=== PATIENT | male | born 1965 | race Caucasian/White ===

== ENCOUNTER 2021-04-11 15:04 | Inpatient (IN) ==
[2021-04-11] MEDS ORDERED: Lactated Ringers 1000 ml BAG 1,000 ML IV ONE (15:23)
[2021-04-11 15:55] LABS: Hematocrit 45 % (42-52); Hemoglobin 15.4 g/dL (14.0-18.0); Mean Corpuscular HGB Conc 34 g/dL (31-36); Mean Corpuscular Hemoglobin 31 pg (27-31); Mean Corpuscular Volume 92 fL (80-94); Red Blood Count 4.94 10^6 /uL (4.18-5.48); Red Cell Distribution Width 16 % (10-15); White Blood Count 5.1 10^3/uL (3.5-10.8)
[2021-04-11 15:57] LABS: Activated Partial Thrombo Time 33.4 seconds (26.0-38.0); INR 1.25 (0.86-1.15)
[2021-04-11 16:05] LABS: ALT 20 U/L (7-52); Albumin 2.5 g/dL (3.2-5.2); Alkaline Phosphatase 365 U/L (35-149); Blood Urea Nitrogen 67 mg/dL (6-24); CO2 Carbon Dioxide 16 mmol/L (22-32); Calcium 8.1 mg/dL (8.6-10.3); Chloride 98 mmol/L (101-111); Creatine Kinase 168 U/L (10-223); Globulin 2.4 g/dL (2-4); Glucose 77 mg/dL (70-100); Sodium 136 mmol/L (135-145); Total Protein 4.9 g/dL (6.4-8.9); eGFR CKD-EPI 15.6 (>60)
[2021-04-11 16:06] LABS: Venous Bicarbonate HCO3 15.5 mmol/L (24-28)
[2021-04-11] MEDS ORDERED: Cefepime 1 GM in Dextrose 1 GM/50 ML BAG IV ONE (16:10)
[2021-04-11] MEDS ORDERED: Vancomycin 1,000 MG in NS 0.9% 250 ml 250 ML IVPB ONE (16:10)
[2021-04-11 16:18] LABS: Alcohol, S < 13 mg/dL (<13)
[2021-04-11 16:22] LABS: Anion Gap 22 mmol/L (2-11)
[2021-04-11] MEDS: Lactated Ringers 1000 ml BAG 1,000 ML IV ONE ×4 (16:29→19:42)
[2021-04-11 17:04] LABS: ABS Eosinophils 0.4 10^3/ul (0-0.6); ABS Lymphocytes 0.5 10^3/ul (1.0-4.8); ABS Neutrophils 4.2 10^3/ul (1.5-7.7); Eosinophil % 8.5 %; Lymphocyte % 9.4 %; Mean Platelet Volume 11.6 fL (7.4-10.4); Platelet Count 12 10^3/uL (150-450)
[2021-04-11 18:46] LABS: Direct Bilirubin 4.7 mg/dL (0.03-0.18); Indirect Bilirubin 1.9 mg/dL (0.3-1.0); Potassium Redraw 2.9 mmol/L (3.5-5.0); Total Bilirubin 6.6 mg/dL (0.2-1.0)
[2021-04-11 19:37] LABS: Lipase < 10 U/L (11.0-82.0)
[2021-04-11] MEDS ORDERED: Lactated Ringers 1000 ml BAG 2,000 ML IV ONE (19:42)
[2021-04-11] MEDS ORDERED: Piperacillin/Tazobac ADVAN 3.375 GM in NS 0.9% 100 ml BAG 100 ML IV ONE (19:54)
[2021-04-11 19:56] LABS: Blood Urea Nitrogen 66 mg/dL (6-24); CO2 Carbon Dioxide 16 mmol/L (22-32); Calcium 7.5 mg/dL (8.6-10.3); Chloride 101 mmol/L (101-111); Glucose 54 mg/dL (70-100); Sodium 137 mmol/L (135-145)
[2021-04-11] MEDS ORDERED: Zosyn per Pharmacy NOTE FOLLOW UP SCH (20:00)
[2021-04-11] MEDS ORDERED: Lactated Ringers 1000 ml BAG 1,000 ML IV SCH ×2 (20:00→22:12)
[2021-04-11 20:01] LABS: Troponin I 0.21 ng/mL (<0.03)
[2021-04-11 20:02] LABS: Anion Gap 20 mmol/L (2-11)
[2021-04-11] MEDS: KCL 20 MEQ/100 ML IVPREMIX 20 MEQ/100 ML BAG IV SCH ×2 (20:25→23:34)
[2021-04-11] MEDS: Norepinephrine 16MCG/ML BAG NS 4,000 MCG/250 ML BAG IV SCH (21:43)
[2021-04-11 22:30] LABS: Calcium 7.3 mg/dL (8.6-10.3); Potassium 3.1 mmol/L (3.5-5.0)
[2021-04-11 22:36] LABS: eGFR CKD-EPI 16.4 (>60)
[2021-04-11] MEDS: Thiamine 100 MG/ML 2 ml VIAL 250 MG in NS 0.9% 100 ml BAG 100 ML IV SCH (22:44)
[2021-04-12] MEDS ORDERED: Lorazepam PYXIS KEY PRN (00:30)
[2021-04-12 02:24] LABS: Anion Gap 16 mmol/L (2-11); Blood Urea Nitrogen 66 mg/dL (6-24); CO2 Carbon Dioxide 17 mmol/L (22-32); Calcium 7.1 mg/dL (8.6-10.3); Chloride 102 mmol/L (101-111); Glucose 117 mg/dL (70-100); Potassium 3.5 mmol/L (3.5-5.0); Sodium 135 mmol/L (135-145); eGFR CKD-EPI 16.7 (>60)
[2021-04-12 02:29] LABS: Troponin I 0.19 ng/mL (<0.03)
[2021-04-12] MEDS: ZOSYN 3.375 GM Q6H - Intermittant 30 min Infusion IV SCH ×2 (02:51→08:04)
[2021-04-12 06:10] LABS: ABS Lymphocytes 0.7 10^3/ul (1.0-4.8); Hematocrit 35 % (42-52); Hemoglobin 11.6 g/dL (14.0-18.0); Mean Corpuscular HGB Conc 33 g/dL (31-36); Mean Corpuscular Hemoglobin 31 pg (27-31); Mean Corpuscular Volume 91 fL (80-94); Mean Platelet Volume 12.7 fL (7.4-10.4); Platelet Count 5 10^3/uL (150-450); Red Cell Distribution Width 17 % (10-15); White Blood Count 17.8 10^3/uL (3.5-10.8)
[2021-04-12 06:25] LABS: Albumin/Globulin Ratio 1.1 (1-3); Globulin 1.9 g/dL (2-4); Magnesium 1.7 mg/dL (1.9-2.7); Phosphorus 4.2 mg/dL (2.5-5.0); Potassium 3.4 mmol/L (3.5-5.0); Total Bilirubin 7.7 mg/dL (0.2-1.0); Total Protein 3.9 g/dL (6.4-8.9); eGFR CKD-EPI 16.7 (>60)
[2021-04-12] MEDS ORDERED: Magnesium Sulfate 2 gm BAG 2 GM/50 ML BAG IVPB ONE (06:30)
[2021-04-12] MEDS: KCL 20 MEQ/100 ML IVPREMIX 20 MEQ/100 ML BAG IV SCH ×2 (06:40→10:18)
[2021-04-12 07:00] LABS: Activated Partial Thrombo Time 35.5 seconds (26.0-38.0); Fibrinogen 242.7 mg/dL (110.8-404.3); INR 1.43 (0.86-1.15)
[2021-04-12 09:11] LABS: Polychromasia 1+
[2021-04-12] MEDS ORDERED: NS 0.9% 1000 ml BAG 1,000 ML IV SCH (09:45)
[2021-04-12] MEDS: Norepinephrine 16MCG/ML BAG NS 4,000 MCG/250 ML BAG IV SCH (09:55)
[2021-04-12 09:58] LABS: ABS Neutrophils 16.6 10^3/ul (1.5-7.7)
[2021-04-12 09:59] LABS: ABS Eosinophils 0.1 10^3/ul (0-0.6); ABS Monocytes 0.8 10^3/ul (0-0.8)
[2021-04-12 10:00] LABS: Eosinophil % 0.6 %; Lymphocyte % 3.7 %
[2021-04-12] MEDS: Multivitamins/Minerals TAB PO SCH (10:18)
[2021-04-12 10:52] LABS: Platelet Count 5 10^3/ul (150-450)
[2021-04-12] MEDS: LORazepam 2 mg VIAL 1 ml IV PUSH SCH ×2 (10:56→13:35)
[2021-04-12] MEDS ORDERED: Linezolid 600 MG IVPREMIX(*) 600 MG/300 ML BAG IVPB SCH (11:00)
[2021-04-12 11:21] LABS: Schistocytes ABSENT
[2021-04-12] MEDS: ZOSYN 3.375 GM Q12H per EXTENDED INFUSION IV SCH (12:15)
[2021-04-12] MEDS: Thiamine 100 MG/ML 2 ml VIAL 250 MG in NS 0.9% 100 ml BAG 100 ML IV SCH (12:29)
[2021-04-12 13:20] LABS: Carcinoembryonic Antigen 4.2 ng/mL (0.1-5.0)
[2021-04-12 14:49] LABS: Folate 9.32 ng/mL (5.90-24.80)
[2021-04-12 14:50] LABS: Vitamin B12 > 1450 pg/mL (180-914)
[2021-04-12 20:20] LABS: Mean Platelet Volume 9.2 fL (7.4-10.4); Platelet Count 10 10^3/uL (150-450)
[2021-04-13] MEDS: Ondansetron 4 mg VIAL 2 MG/ML 2 ml VIAL IV PRN (00:50)
[2021-04-13] MEDS ORDERED: Pantoprazole VIAL 40 MG VIAL IV ONE (00:54)
[2021-04-13] MEDS: ZOSYN 3.375 GM Q12H per EXTENDED INFUSION IV SCH ×2 (01:39→15:19)
[2021-04-13] MEDS: Pantoprazole 80 mg in NS BAG 80 MG/250 ML BAG IV SCH ×2 (01:46→11:19)
[2021-04-13 01:50] LABS: Hematocrit 32 % (42-52); Hemoglobin 10.9 g/dL (14.0-18.0)
[2021-04-13 02:03] LABS: Activated Partial Thrombo Time 36.5 seconds (26.0-38.0); Fibrinogen 231.9 mg/dL (110.8-404.3)
[2021-04-13 02:06] LABS: Albumin 2.1 g/dL (3.2-5.2); Albumin/Globulin Ratio 1.1 (1-3); Calcium 6.8 mg/dL (8.6-10.3); Potassium 3.6 mmol/L (3.5-5.0); Total Bilirubin 9.9 mg/dL (0.2-1.0); Total Protein 4.1 g/dL (6.4-8.9); eGFR CKD-EPI 13.5 (>60)
[2021-04-13 02:25] LABS: Schistocytes ABSENT
[2021-04-13 02:50] LABS: Platelet Count 16 10^3/ul (150-450)
[2021-04-13] MEDS: Norepinephrine 16MCG/ML BAG NS 4,000 MCG/250 ML BAG IV SCH ×2 (04:44→15:21)
[2021-04-13 05:02] LABS: Hematocrit 32 % (42-52); Hemoglobin 10.6 g/dL (14.0-18.0); Mean Corpuscular HGB Conc 33 g/dL (31-36); Mean Corpuscular Hemoglobin 30 pg (27-31); Mean Corpuscular Volume 91 fL (80-94); Mean Platelet Volume 9.7 fL (7.4-10.4); Platelet Count 9 10^3/uL (150-450); Red Blood Count 3.51 10^6 /uL (4.18-5.48); Red Cell Distribution Width 17 % (10-15); White Blood Count 16.1 10^3/uL (3.5-10.8)
[2021-04-13 05:16] LABS: Calcium 6.9 mg/dL (8.6-10.3); Magnesium 2.3 mg/dL (1.9-2.7); Potassium 3.8 mmol/L (3.5-5.0); eGFR CKD-EPI 13.1 (>60)
[2021-04-13 05:42] LABS: Anisocytosis 1+
[2021-04-13 05:43] LABS: Burr Cells 1+
[2021-04-13 05:44] LABS: ABS Lymphocytes 1.1 10^3/ul (1.0-4.8); Lymphocyte % 6.8 %
[2021-04-13] MEDS ORDERED: Lactated Ringers 1000 ml BAG 1,000 ML IV SCH (08:00)
[2021-04-13] MEDS: Multivitamins/Minerals TAB PO SCH (08:27)
[2021-04-13] MEDS ORDERED: Furosemide 40 mg/4 ml IV VIAL IV ONE (08:35)
[2021-04-13 08:39] LABS: Corrected Retic Count 0.7 % (0.5-1.5); Hematocrit for Retic CNT 32 % (42-52); Immature Retic Fraction 0.35; RBC Retic Count 3.48 10^6/uL (4.18-5.48)
[2021-04-14] MEDS: ZOSYN 3.375 GM Q12H per EXTENDED INFUSION IV SCH (02:02)
[2021-04-14] MEDS: Norepinephrine 16MCG/ML BAG NS 4,000 MCG/250 ML BAG IV SCH (04:55)
[2021-04-14] MEDS: Multivitamins/Minerals TAB PO SCH (07:02)
[2021-04-14 07:17] LABS: Hematocrit 28 % (42-52); Hemoglobin 9.5 g/dL (14.0-18.0); Mean Corpuscular HGB Conc 34 g/dL (31-36); Mean Corpuscular Hemoglobin 31 pg (27-31); Mean Corpuscular Volume 92 fL (80-94); Platelet Count 7 10^3/uL (150-450); Red Blood Count 3.07 10^6 /uL (4.18-5.48); Red Cell Distribution Width 17 % (10-15); White Blood Count 11.9 10^3/uL (3.5-10.8)
[2021-04-14 07:24] LABS: Calcium 6.6 mg/dL (8.6-10.3); Potassium 4.6 mmol/L (3.5-5.0); eGFR CKD-EPI 10.1 (>60)
[2021-04-14] MEDS ORDERED: Furosemide 100 mg/10 ml IV VIAL IV ONE (07:42)
[2021-04-14] MEDS ORDERED: Atropine 1% (ORAL/SL) 15 ML BTL SL PRN (11:53)
[2021-04-14] MEDS ORDERED: LORazepam 2 mg VIAL 1 ml IV PUSH PRN ×2 (11:53→11:57)
[2021-04-14] MEDS ORDERED: Morphine PCA ADULT 5 MG/ML 30 ML PCA SCH ×2 (12:00)
[2021-04-14] MEDS: Ondansetron 4 mg VIAL 2 MG/ML 2 ml VIAL IV PRN (12:13)
[2021-04-14 18:06] VITALS: BP 70/36
== END 2021-04-14 19:12 | disposition expired | DRG 871 ==
LOC: ED 15:04 → EDHOLD 19:42 → ICU 22:30
PROVIDERS: ADMIT Internal Medicine Critical Care Medicine; ATTEND Internal Medicine